=== PATIENT | female | born 1945 | race Caucasian/White ===

== ENCOUNTER → 2016-04-05 | Outpatient (CLI) | payer OTHER ==
--- NOTE | 2016-04-05 12:51 | DX ---
Right Knee, 3 Views Each History: Knee pain. Findings: Normal underlying mineralization. No evidence for acute fracture or dislocation. Mild peria rticular spurring is seen in the medial compartment bilaterally. No evidence for articular erosion or soft tissue calcification. There is joint narrowing of the patellofemoral compartment bilaterally, m ore severe on the right than the left. Periarticular spurring is seen in the patellofemoral compartme nt bilaterally. Slight suprapatellar joint effusion. 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 Mild early degenerative change in the medial compartment of both knees.
== END ==
LOC: BRMIMAGING 10:45
PROVIDERS: ATTEND Internal Medicine
DX: M17.0 Bilateral primary osteoarthritis of knee (principal); M25.461 Effusion, right knee
CPT/HCPCS: 73562-PO